=== PATIENT | female | born 1980 | race Caucasian/White ===

== ENCOUNTER 2021-04-05 13:53 | Emergency (ER) | payer OTHER | END 2021-04-05 20:43 | disposition home or self-care (01) | LOC: FER 13:53 | DX: M54.42 Lumbago with sciatica, left side (principal); J45.909 Unspecified asthma, uncomplicated; F17.210 Nicotine dependence, cigarettes, uncomplicated; Z91.040 Latex allergy status; Z91.030 Bee allergy status | CPT/HCPCS: 72100; 96372; J1100; J1885 ==